=== PATIENT | male | born 1995 | race Caucasian/White ===

== ENCOUNTER 2017-05-27 16:58 | Emergency (ER) | payer BC, OTHER ==
[2017-05-27 17:06] VITALS: TEMP 98.4
[2017-05-27] MEDS ORDERED: CEPHALEXIN 500 MG CAP PO ONE (17:26)
--- NOTE | 2017-05-27 17:39 | EDPHY ---
H & P Time Seen by Provider: 05/27/17 17:07 HPI/ROS: CHIEF COMPLAINT: Left thenar eminence laceration HISTORY OF PRESENT ILLNESS: 21-year-old immunocompetent male with up-to-date tetanus, right-hand dominant, was whittling a piece of wood when the knife slipped and he sustained a laceration to his left thenar eminence. No paresthesia. No sensory or motor deficit. Occurred shortly prior to arrival. PHYSICAL EXAM (Prior to examination, patient consented to physical exam, hands were washed and my usual and customary physical exam procedures followed) 1) GENERAL: Well-developed, well-nourished, alert and oriented. Appears to be in no acute distress. 2) HEAD: Normocephalic 3) HEENT: sclera anicteric 4) LUNGS: Breathing comfortably. 5) SKIN: Left thenar eminence 4 cm well-demarcated laceration with partial laceration of the muscle belly and muscle fascia. 6) MUSCULOSKELETAL: No gross flexor, extensor, abduction adduction defects. 7) NEUROLOGIC: Full sensation two-point discrimination intact distally Smoking Status: Never smoked Constitutional: Initial Vital Signs Temperature (C) 36.9 C 05/27/17 16:58 Heart Rate 72 05/27/17 16:58 Respiratory Rate 18 05/27/17 16:58 Blood Pressure 133/94 H 05/27/17 16:58 O2 Sat (%) 98 05/27/17 16:58 O2 Delivery Mode Room Air Allergies/Adverse Reactions: No Known Allergies Allergy (Unverified 05/27/17 17:04) Home Medications: Medication Instructions Recorded Cephalexin [Keflex] 500 mg PO TID 5 Days cap 05/27/17 MDM/Departure - MDM Procedures: Procedure: Laceration repair. I explained the indications, risks and benefits for both laceration repair and anesthetic administration. Verbal consent was obtained from the patient . The laceration on the left thenar eminence was anesthetized using 0.5% bupivicaine with epinephrine . After anesthetic administered the patient was observed for a period of time and had no apparent adverse effects. The wound was cleaned, prepped, draped in normal sterile fashion and explored to its base. No foreign body seen, no foreign bodies palpated. Laceration to the muscle belly noted. 5 simple interrupted subcutaneous 5 0 Vicryl sutures placed reapproximating muscle belly and fascia. Skin closed with 9 simple interrupted 5 0 Vicryl sutures. The wound repair was complex. The procedure was performed by myself. Patient has been informed that scarring will occur, although efforts have been made to minimize this. Procedure: Splint A Velcro thumb spica splint was applied by ER drinking water technician in order to immobilize this area to reduce stress on the laceration site. After application of the splint I returned and re-examined the patient. The splint was adequately immobilizing the joint and distal to the splint the patient's circulation and sensation were intact. Patient shows no signs of compartment syndrome. Medications Given: Discontinued Medications Hydrocodone Bitart/Acetaminophen ([place]uffern 5/325mg Prepack#6) 1 btl TAKEHOME EDNOW ONE Stop: 05/27/17 17:42 Last Admin: 05/27/17 19:12 Dose: 1 btl Cephalexin (Keflex 500 Mg Prepack#4) 1 btl TAKEHOME EDNOW ONE PRN Reason: Protocol Stop: 05/27/17 17:42 Last Admin: 05/27/17 19:12 Dose: 1 btl Cephalexin HCl (Keflex) 500 mg PO EDNOW ONE PRN Reason: Protocol Stop: 05/27/17 17:27 Last Admin: 05/27/17 17:38 Dose: 500 mg ED Course/Re-evaluation: This patient was re-evaluated with serial examinations and the case discussed with secondary supervising physician Dr. Hummel in the ER. Consultation with Dr. Loy Lemus, on-call hand surgery at 6:33 p.m. who agrees with plan, recommends follow up with his colleague Dr. Falk later this week as today is Sunday and tomorrow is . He has been informed that he may necessitate further intervention by hand surgery and the importance of follow-up with Hand surgery has been stressed on numerous instances although I do not think that emergent hand surgery consultation is indicated. I am starting on prophylactic antibiotics and given him local hand surgery follow-up information with Dr. Loy Lemus. Usual and customary wound precautions instructions provided. - Depart Disposition: Home, Routine, Self-Care Clinical Impression: Laceration of left hand Qualifiers: Encounter type: initial encounter Foreign body presence: without foreign body Qualified Code(s): S61.412A - Laceration without foreign body of left hand, initial encounter Condition: Good Instructions: Cephalexin (By mouth), Hydrocodone/Acetaminophen (By mouth), Care For Your Stitches (ED), Laceration (ED) Additional Instructions: Return to the ER if you develop redness, swelling, discharge, warmth to the wound, red streaks going up your arm, or any other symptoms that concern you. Keflex 500mg oral 3 times per day. [place]ern 1-2 tablets every 6 hours as needed for pain. Prescriptions: Cephalexin [Keflex] 500 mg PO TID 5 Days cap Referrals: Sina Falk MD [Medical Doctor] - 05/29/17
[2017-05-27] MEDS ORDERED: CEPHALEXIN 500MG PREPACK#4 BTL TAKEHOME ONE (17:41)
[2017-05-27] MEDS ORDERED: HYDROCOD/APAP 5/325 PREPACK#6 BTL TAKEHOME ONE (17:41)
[2017-05-27 19:17] VITALS: BP 118/78; PULSE 68; RESP 16; O2SAT 96
== END 2017-05-27 19:18 | disposition home or self-care (01) ==
PROC: 0HQGXZZ Repair Left Hand Skin, External Approach (ICD-10-PCS; principal; 2017-05-27)
DX: S61.412A Laceration without foreign body of left hand, initial encounter (principal); W26.0XXA Contact with knife, initial encounter; Y99.0 Civilian activity done for income or pay; Y93.89 Activity, other specified
CPT/HCPCS: L3807